=== PATIENT | male | born 1985 | race Caucasian/White ===

== ENCOUNTER 2022-02-05 19:16 | Emergency (ER) | payer OTHER, SELFPAY ==
[2022-02-05 19:26] VITALS: BP 151/77; PULSE 105; RESP 16; TEMP 36.1; O2SAT 96; BMI 31.8
[2022-02-05 19:48] LABS: Appearance Urine UA CLEAR; Bilirubin Urine UA NEGATIVE (NEGATIVE); Color Urine UA YELLOW; Glucose Urine UA NEGATIVE (Negative); Ketones Urine UA NEGATIVE (NEGATIVE); Leukocyte Esterase Urine UA NEGATIVE (NEGATIVE); Nitrite Urine UA NEGATIVE (Negative); Occult Blood Urine UA 1+ (Negative); Protein Urine UA NEGATIVE (Negative); Specific Gravity Urine UA 1.025 (1.000-1.035); Urobilinogen Urine UA 0.2 E.U./dL (0.2); pH Urine UA 5.5 (4.5-8.0)
[2022-02-05 19:56] LABS: Bacteria Urine None Seen; Culture Indicated Urine Cult Not Indicated; RBC Urine 0-1/HPF (0-5/HPF); Squamous Epithelial Cell Urine 0-1 /HPF (0-5/HPF); WBC Urine 0-1/HPF (0-5/HPF)
[2022-02-05 20:04] LABS: Add Manual Diff / Slide Review NO; Basophils Absolute Auto 100 /uL (0-100); Basophils Percent Auto 0.6 % (0-2); Eosinophils Absolute Auto 100 /uL (0-450); Eosinophils Percent Auto 0.4 % (2-4); Hematocrit 41.3 % (41-53); Hemoglobin 14.4 g/dL (13.5-17.5); Lymphocytes Absolute Auto 1900 /uL (1100-4500); Lymphocytes Percent Auto 13.4 % (25-40); Mean Corpuscular HGB Conc 34.8 % (30-36); Mean Corpuscular Hemoglobin 29.8 PG (26-34); Mean Corpuscular Volume 85.5 fL (80-100); Monocytes Absolute Auto 1000 /uL (0-900); Monocytes Percent Auto 6.7 % (3-14); Neutrophils Absolute Auto 11400 /uL (1500-7000); Neutrophils Percent Auto 78.9 % (50-75); Platelet Count 263 X10^3/uL (150-400); Red Blood Cell Count 4.83 X10^6/uL (4.5-5.9); Red Cell Distribution Width 13.4 % (11.6-14.8); White Blood Cell Count 14.4 X10^3/uL (4.5-11.0)
[2022-02-05 20:20] LABS: Alanine Aminotransferase 19 IU/L (<50); Albumin 4.5 g/dL (3.5-5.0); Albumin Globulin Ratio 1.4 (1.0-2.8); Alkaline Phosphatase 76 U/L (38-126); Aspartate Aminotransferase 24 IU/L (17-59); BUN Creatinine Ratio 14.7 (6-22); Bilirubin Total 0.5 mg/dL (0.2-1.3); Blood Urea Nitrogen 19 mg/dL (9-20); Calcium 9.2 mg/dL (8.4-10.2); Carbon Dioxide 23 mmol/L (22-32); Chloride 106 mmol/L (98-107); Estimated Glomerular Filt Rate > 60.0 mL/min (>60); Globulin 3.3 g/dL (1.7-4.1); Glucose 112 mg/dL (70-100); HEMOLYSIS 16 (0-50); Lipase 57 U/L (23-300); Potassium 4.1 mmol/L (3.4-5.1); Sodium 137 mmol/L (137-145); Total Protein 7.8 g/dL (6.3-8.2)
--- NOTE | 2022-02-05 21:03 | ED_ITS ---
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 Notes that he had a mild amount of discomfort last night, he had some slightly loose stool today without blood. No fevers or chills. No vomiting. Intermittent waves of nausea and increasing pain with moving, coughing or sneezing as the day progresses. He has never had similar pain. He reports that he drinks occasionally but not regularly. He is not currently on any prescription medications. He has had no similar findings. He reports no cough, chills, dyspnea, palpitations, headache or skin changes. No recent back injuries and no complaints current back pain or dysuria. Related Data Previous Rx's Medication Instructions Recorded ciprofloxacin HCl 500 mg tablet 500 mg PO BID #20 tab 02/05/22 (Cipro) metronidazole 500 mg tablet 500 mg PO TID #30 tab 02/05/22 Review of Systems Review of Systems Narrative: Remainder of complete review of systems is otherwise unremarkable except for that included in the HPI. Patient History alcohol intake frequency: a few times a week Exam Initial Vital Signs Initial Vital Signs: Vital Signs Temperature 97.0 F L 02/05/22 19:26 Pulse Rate 105 H 02/05/22 19:26 Respiratory Rate 16 02/05/22 19:26 Blood Pressure 151/77 H 02/05/22 19:26 Pulse Oximetry 96 02/05/22 19:26 General: Healthy appearing, in no acute distress. Able to give a complete and coherent history. Well-nourished well-developed HEENT: Moist mucous membranes, normal sclera with reactive pupils, Neck: No JVD, supple Respiratory: Lungs are clear to auscultation, no wheezing no rales no rhonchi. Full and symmetrical air movement Cardiac: Regular rate and rhythm no murmurs no bruits Abdomen: Left lower quadrant tenderness without rebound or guarding. No other abdominal tenderness and no flank pain. He does have slightly hyperactive bowel tones Skin: Warm and dry, no rashes Neurologic: Grossly neurologically intact with no obvious asymmetries or abnormalities Extremities: No trauma, well perfused Psych: Cooperative, appropriate insight and affect Course Orders Ordered: ED Orders 02/05/22 19:31 EKG-12 Lead Stat 02/05/22 19:35 Complete Blood Count AUTO DIFF Stat Comprehensive Metabolic Panel Stat Lipase Stat Urinalysis and Microscopic Stat 02/05/22 21:12 CT chest abd pel w con Stat Discontinued Medications Ciprofloxacin (Ciprofloxacin 250 Mg Tablet) 500 mg PO NOW ONE Stop: 02/05/22 22:30 Metronidazole (Metronidazole 500 Mg Tablet) 500 mg PO NOW ONE Stop: 02/05/22 22:30 Oxycodone/Acetaminophen (Oxycodone/Apap 5/325 Prepack) 1 bottle MISC SEEINSTR ONE Stop: 02/05/22 22:30 Vital Signs Vital signs: Vital Signs - 8 hr 02/05/22 19:26 Temperature 97.0 F L Pulse Rate 105 H Respiratory Rate 16 Blood Pressure 151/77 H Pulse Oximetry 96 Medical Decision Making Lab Data Result diagrams: 02/05/22 19:35 02/05/22 19:35 Labs: Lab Results 02/05/22 02/05/22 02/05/22 Range/Units 19:35 19:35 19:35 WBC 14.4 H (4.5-11.0) X10^3/uL RBC 4.83 (4.5-5.9) X10^6/uL Hgb 14.4 (13.5-17.5) g/dL Hct 41.3 (41-53) % MCV 85.5 (80-100) fL MCH 29.8 (26-34) PG MCHC 34.8 (30-36) % RDW 13.4 (11.6-14.8) % Plt Count 263 (150-400) X10^3/uL Neut % (Auto) 78.9 H (50-75) % Lymph % (Auto) 13.4 L (25-40) % [place] % (Auto) 6.7 (3-14) % Eos % (Auto) 0.4 L (2-4) % Baso % (Auto) 0.6 (0-2) % Neut # (Auto) 03833 H (8233-4878) /uL Lymph # (Auto) 1900 (3038-5995) /uL [place] # (Auto) 1000 H (0-900) /uL Eos # (Auto) 100 (0-450) /uL Baso # (Auto) 100 (0-100) /uL Sodium 137 (137-145) mmol/L Potassium 4.1 (3.4-5.1) mmol/L Chloride 106 (98-107) mmol/L Carbon Dioxide 23 (22-32) mmol/L BUN 19 (9-20) mg/dL Creatinine 1.29 H (0.66-1.25) mg/dL Estimated GFR > 60.0 (>60) mL/min BUN/Creatinine Ratio 14.7 (6-22) Glucose 112 H (70-100) mg/dL Calcium 9.2 (8.4-10.2) mg/dL Total Bilirubin 0.5 (0.2-1.3) mg/dL AST 24 (17-59) IU/L ALT 19 (<50) IU/L Alkaline Phosphatase 76 (38-126) U/L Total Protein 7.8 (6.3-8.2) g/dL Albumin 4.5 (3.5-5.0) g/dL Globulin 3.3 (1.7-4.1) g/dL Albumin/Globulin Ratio 1.4 (1.0-2.8) Lipase 57 (23-300) U/L Urine Color Yellow Urine Appearance Clear Urine pH 5.5 (4.5-8.0) Ur Specific [place] 1.025 (1.000-1.035) Urine Protein Negative (Negative) Urine Glucose (UA) Negative (Negative) g/dL Urine Ketones Negative (NEGATIVE) Urine Occult Blood 1+ H (Negative) Urine Nitrate Negative (Negative) Urine Bilirubin Negative (NEGATIVE) Urine Urobilinogen 0.2 (0.2) E.U./dL Ur Leukocyte Esterase Negative (NEGATIVE) Urine RBC 0-1/hpf (0-5/HPF) Urine WBC 0-1/hpf (0-5/HPF) Ur Squamous Epith Cells 0-1 /hpf (0-5/HPF) Urine Bacteria None seen (None) Ur Culture Indicated? Cult not indicated Imaging Data CT scan - abdomen/pelvis: Radiologist's Impression: FINDINGS:? Image quality:? Excellent.? ? CHEST: Lower Neck: No enlarged lymph nodes.? Thyroid:? Visualized thyroid demonstrates no discrete nodules. Axillae: No enlarged lymph nodes. Chest Wall:? Unremarkable.? ? Lungs and Airways:? There is mild linear atelectasis or scarring posteriorly in the right lower lobe along the right hemidiaphragm.? A small 0.2 cm nodule is present along the right middle lobe on series 3, image 127. Pleura: No pneumothorax or pleural effusions.? ? Heart: Heart size is normal.? No pericardial effusion. Thoracic Vessels: The aorta and pulmonary arteries demonstrate normal size.? Mediastinum and [place]: No enlarged lymph nodes.? 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 Esophagus:? There is a small hiatal hernia with associated mild concentric wall thickening in the distal esophagus. ? ABDOMEN: Liver:? No mass lesion. Gallbladder:? Within normal limits without calcified gallstones.? ? Biliary ducts:? No biliary ductal dilatation.? ? Pancreas:? Unremarkable.? ? Spleen:? Normal in size.? ? Adrenal Glands:? No adrenal nodules.? ? Kidneys and Ureters:? No hydronephrosis.? ? ? Stomach and Bowel:? Stomach and small bowel loops are normal in caliber and wall thickness.? The appendix is normal in appearance.? There is colonic diverticulosis with associated diverticular and segmental colonic wall thickening in the descending colon associated with pericolonic fat stranding and a small amount of fluid in the left pericolic gutter.? Findings are consistent acute diverticulitis.? No macroscopic free air or discrete diverticular abscess. ? Ventral Wall: ? No hernia.? Abdominal Nodes:? No retroperitoneal or mesenteric adenopathy by size criteria.? Vessels:? Aorta and inferior vena cava are normal in size.? ? PELVIS: Pelvic Organs:? Unremarkable.? ? Bladder:? Unremarkable.? ? Pelvic Nodes: No enlarged lymph nodes.? Miscellaneous: No inguinal hernias are seen. ? ? ? Bones:? Visualized osseous structures demonstrate no suspicious focal lesions. IMPRESSION:? ? 1.? Acute diverticulitis in the descending colon without evidence of diverticular abscess or macroscopic free air. ? 2.? Small hiatal hernia with mild concentric wall thickening in the distal esophagus.? The findings are suggestive of an esophagitis but correlation is recommended clinically and consider follow-up with endoscopy if indicated. ? 3.? Small 0.2 cm nodule in the right middle lobe along the minor fissure.? Findings are nonspecific and may represent a small intrapulmonary lymph node.? If patient is at high risk for malignancy, a follow-up CT may be performed in 12 months to demonstrate stability. ? Dictated by: Neno Garcia M.D. on 02/05/2022 at 22:00 ? ? [facility] Narrative Medical decision making narrative: 36-year-old gentleman presents with increasing left lower quadrant pain over the course of the last 24 hours. Mild leukocytosis and CT scan is positive for diverticulitis without abscess or perforation. At this point he is not septic, he is able to eat and drink, his pain is enough that he would like some pain medication have at home but has requested nothing in the emergency department. He is safe for home discharge with antibiotics. Findings are reviewed with him questions are answered. Discharge Plan Departure Patient Disposition: Home Clinical Impression: Diverticulitis Instructions: DI for Diverticulitis Activity Restrictions/Additional Instructions: Thank you for coming in today You have diverticulitis. Fortunately you came in early in the course and you will do well with outpatient antibiotics. I have given you some Percocet to use for severe pain. Please recognize that constipation can make diverticulitis worse so if you do choose to take the Percocet make sure you drinking plenty of water and adding stool softeners and/or dried fruit to prevent constipation. To treat diverticulitis we typically use Cipro/ ciprofloxacin 2 times a day for 10 days and Flagyl/metronidazole 3 times a day for 10 days. Drinking any alcoh ol at all with the Flagyl will cause a severe flushing reaction, nausea and likely vomiting. Prescriptions were electronically transmitted to [facility] in [place] If you have worsening pain fevers or new symptoms, please return to the ER I hope you feel better quickly Prescriptions: New ciprofloxacin HCl [Cipro] 500 mg tablet 500 mg PO BID Qty: 20 0RF metronidazole 500 mg tablet 500 mg PO TID Qty: 30 0RF
--- NOTE | 2022-02-05 21:12 | DI.CT.S_ITS ---
PROCEDURE: CT CHEST ABD PEL W CON INDICATIONS: Left lower quadrant abdominal pain TECHNIQUE: After the administration of intravenous contrast, axial sections acquired from the supraclavicular neck to the pubic symphysis. Coronal and sagittal reformats were performed. For radiation dose reduction, the following was used: automated exposure control, adjustment of mA and/or kV according to patient size. COMPARISON:None. FINDINGS: Image quality: Excellent. CHEST: Lower Neck: No enlarged lymph nodes. Thyroid: Visualized thyroid demonstrates no discrete nodules. Axillae: No enlarged lymph nodes. Chest Wall: Unremarkable. Lungs and Airways: There is mild linear atelectasis or scarring posteriorly in the right lower lobe along the right hemidiaphragm. A small 0.2 cm nodule is present along the right middle lobe on series 3, image 127. Pleura: No pneumothorax or pleural effusions. Heart: Heart size is normal. No pericardial effusion. Thoracic Vessels: The aorta and pulmonary arteries demonstrate normal size. Mediastinum and [place]: No enlarged lymph nodes. 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 Esophagus: There is a small hiatal hernia with associated mild concentric wall thickening in the distal esophagus. ABDOMEN: Liver: No mass lesion. Gallbladder: Within normal limits without calcified gallstones. Biliary ducts: No biliary ductal dilatation. Pancreas: Unremarkable. Spleen: Normal in size. Adrenal Glands: No adrenal nodules. Kidneys and Ureters: No hydronephrosis. Stomach and Bowel: Stomach and small bowel loops are normal in caliber and wall thickness. The appendix is normal in appearance. There is colonic diverticulosis with associated diverticular and segmental colonic wall thickening in the descending colon associated with pericolonic fat stranding and a small amount of fluid in the left pericolic gutter. Findings are consistent acute diverticulitis. No macroscopic free air or discrete diverticular abscess. Ventral Wall: No hernia. Abdominal Nodes: No retroperitoneal or mesenteric adenopathy by size criteria. Vessels: Aorta and inferior vena cava are normal in size. PELVIS: Pelvic Organs: Unremarkable. Bladder: Unremarkable. Pelvic Nodes: No enlarged lymph nodes. Miscellaneous: No inguinal hernias are seen. Bones: Visualized osseous structures demonstrate no suspicious focal lesions. IMPRESSION: 1. Acute diverticulitis in the descending colon without evidence of diverticular abscess or macroscopic free air. 2. Small hiatal hernia with mild concentric wall thickening in the distal esophagus. The findings are suggestive of an esophagitis but correlation is recommended clinically and consider follow-up with endoscopy if indicated. 3. Small 0.2 cm nodule in the right middle lobe along the minor fissure. Findings are nonspecific and may represent a small intrapulmonary lymph node. If patient is at high risk for malignancy, a follow-up CT may be performed in 12 months to demonstrate stability. Dictated by: Neno Garcia M.D. on 02/05/2022 at 22:00 Approved by: Neno Garcia M.D. on 02/05/2022 at 22:05
[2022-02-05 21:30] VITALS: PULSE 98; O2SAT 99
[2022-02-05 21:43] VITALS: BP 154/86; PULSE 92; O2SAT 100
[2022-02-05 22:00] VITALS: PULSE 97; O2SAT 100
[2022-02-05 22:30] VITALS: PULSE 96; O2SAT 99
[2022-02-05] MEDS: OXYCODONE/APAP 5/325 PREPACK 1 BOTTLE MISC (22:39)
[2022-02-05] MEDS: CIPROFLOXACIN 250 MG TABLET 500 MG PO (22:40)
[2022-02-05] MEDS: metroNIDAZOLE 500 MG TABLET PO (22:40)
== END 2022-02-05 22:48 | disposition home or self-care (01) ==
PROVIDERS: Emergency Provider Emergency Medicine
DX: K57.32 Diverticulitis of large intestine without perforation or abscess without bleeding (principal)
CPT/HCPCS: 36415; 71260; 74177; 80053; 81001; 83690; 85025; 99283; 99284; Q9967